=== PATIENT | male | born 1930 | race Two or more races ===

== ENCOUNTER 2017-11-13 08:20 | Outpatient (CLI) | payer OTHER ==
[~2017-11-13 08:20] MED LIST: CIPRO250 MG PO; FLOMAX; LIPOFLAVONOID C1 TAB; PROTONIX40 MG PO; SULAR10 MG PO
== END 2017-11-13 08:25 | disposition home or self-care (01) ==
LOC: TOM 08:20
DX: N13.39 Other hydronephrosis (principal)

== ENCOUNTER 2018-03-13 18:12 | Emergency (ER) | payer OTHER ==
[~2018-03-13] VITALS: Ht 162.6 cm; Wt 65.3 kg
== END 2018-03-13 21:08 | disposition home or self-care (01) ==
LOC: ER 18:12
DX: M79.672 Pain in left foot (principal)

== ENCOUNTER 2018-05-10 17:32 | Emergency (ER) | payer OTHER ==
[~2018-05-10] VITALS: Ht 170.2 cm; Wt 70.8 kg
[2018-05-10] MEDS ORDERED: DOXYCYCLINE HY100 MG PO (22:25)
== END 2018-05-10 23:01 | disposition home or self-care (01) ==
LOC: ER 17:32
DX: R31.0 Gross hematuria (principal)

== ENCOUNTER 2018-12-06 11:53 | Outpatient (CLI) | payer OTHER ==
[~2018-12-06 11:53] MED LIST changes: +DOXYCYCLINE HY100 MG PO
== END 2018-12-06 11:56 | disposition home or self-care (01) ==
LOC: RAD 11:53
DX: D68.8 Other specified coagulation defects (principal); H25.89 Other age-related cataract

== ENCOUNTER 2018-12-11 23:38 | Emergency (ER) | payer OTHER ==
[~2018-12-11] VITALS: Ht 165.1 cm; Wt 72.6 kg
[2018-12-11] MEDS ORDERED: DILTIAZEM ER120 M2 PO (23:53)
[2018-12-11] MEDS ORDERED: BENICAR20 MG (23:53)
== END 2018-12-12 06:37 | disposition home or self-care (01) ==
LOC: ER 23:38
DX: I16.0 Hypertensive urgency (principal); I10 Essential (primary) hypertension